=== PATIENT | female | born 1995 | race American Indian/Alaskan Native ===

== ENCOUNTER 2021-11-08 02:58 | Emergency (ER) | payer SELFPAY ==
[2021-11-08 03:23] VITALS: BP 106/49
--- NOTE | 2021-11-08 04:28 | Emergency Department Report ---
<DANIEL LOZOYA - Last Filed: 11/08/21 04:24> ED ENT HPI - General Chief complaint: Dental/Oral Stated complaint: TOOTHACHE Time Seen by Provider: 11/08/21 04:08 Source: patient Mode of arrival: Ambulatory Limitations: No Limitations - History of Present Illness Initial comments: 20 [place] female with history of recurrent dental infection due to dental fractures presents emerged from complaining of a flareup on the right side with a dull throbbing pain worse with chewing and palpation that radiates up towards her ear and across the jawline. She reports no hemoptysis symptoms hematochezia, no odynophagia or dysphagia no posterior oropharynx swelling swelling 1 - Dental caries pain region 2 - Severe dental erosion packed with tissue. Severity: moderate Quality: dull - Related Data Previous Rx's Medication Instructions Recorded Last Taken Type Amoxicillin [Amoxicillin TAB] 875 mg PO BID #20 tablet 11/08/21 Unknown Rx Chlorhexidine Mouthwash [Peridex] 15 ml MM BID #1 bottle 11/08/21 Unknown Rx Ketorolac [Toradol] 10 mg PO Q6H PRN #15 tablet 11/08/21 Unknown Rx Lidocaine Viscous 2% 5 ml MM Q3H PRN #120 udc 11/08/21 Unknown Rx ED Dental HPI - General Chief complaint: Dental/Oral Stated complaint: TOOTHACHE Time Seen by Provider: 11/08/21 04:08 Source: patient Mode of arrival: Ambulatory Limitations: No Limitations - Related Data Previous Rx's Medication Instructions Recorded Last Taken Type Amoxicillin [Amoxicillin TAB] 875 mg PO BID #20 tablet 11/08/21 Unknown Rx Chlorhexidine Mouthwash [Peridex] 15 ml MM BID #1 bottle 11/08/21 Unknown Rx Ketorolac [Toradol] 10 mg PO Q6H PRN #15 tablet 11/08/21 Unknown Rx Lidocaine Viscous 2% 5 ml MM Q3H PRN #120 udc 11/08/21 Unknown Rx ED Past Medical Hx - Past Medical History Previous Medical History?: No - Surgical History Past Surgical History?: No - Social History Smoking Status: Never Smoker - Medications Home Medications: Home Medications Medication Instructions Recorded Confirmed Last Taken Type Amoxicillin [Amoxicillin TAB] 875 mg PO BID #20 tablet 11/08/21 Unknown Rx Chlorhexidine Mouthwash [Peridex] 15 ml MM BID #1 bottle 11/08/21 Unknown Rx Ketorolac [Toradol] 10 mg PO Q6H PRN #15 tablet 11/08/21 Unknown Rx Lidocaine Viscous 2% 5 ml MM Q3H PRN #120 udc 11/08/21 Unknown Rx ED Physical Exam - General Limitations: No Limitations General appearance: alert, in no apparent distress - Head Head exam: Present: atraumatic, normocephalic - Eye Eye exam: Present: normal appearance - ENT ENT exam: Present: mucous membranes moist - Expanded ENT Exam Expanded Teeth exam: Present: dental caries, fractured tooth # 1 - Fractured (Dental fracture erosion packed with brown tissue paper), Dental Tenderness 2 - Dental Tenderness - Neck Neck exam: Present: normal inspection - Respiratory Respiratory exam: Present: normal lung sounds bilaterally. Absent: respiratory distress - Cardiovascular Cardiovascular Exam: Present: regular rate, normal rhythm. Absent: systolic murmur, diastolic murmur, rubs, gallop - GI/Abdominal GI/Abdominal exam: Present: soft, normal bowel sounds - Extremities Exam Extremities exam: Present: normal inspection - Back Exam Back exam: Present: normal inspection - Neurological Exam Neurological exam: Present: alert, oriented X3 - Psychiatric Psychiatric exam: Present: normal affect, normal mood - Skin Skin exam: Present: warm, dry, intact, normal color. Absent: rash ED Disposition Clinical Impression: Infected dental caries, Dentalgia Disposition: HOME / SELF CARE / HOMELESS Is pt being admited?: No Does the pt Need Aspirin: No Condition: Stable Instructions: Dental Abscess, Acute Pain, Adult Prescriptions: Amoxicillin [Amoxicillin TAB] 875 mg PO BID #20 tablet Lidocaine Viscous 2% 5 ml MM Q3H PRN #120 udc PRN Reason: Pain, Moderate (4-6) Chlorhexidine Mouthwash [Peridex] 15 ml MM BID #1 bottle Ketorolac [Toradol] 10 mg PO Q6H PRN #15 tablet PRN Reason: Pain Referrals: [facility] [Outside] - 3-5 Days Forms: Accompanied Note, Work/School Release Form(ED) <SELMA ALBRIGHT - Last Filed: 11/11/21 21:34> ED Review of Systems ROS: Stated complaint: TOOTHACHE Other details as noted in HPI ED Course Vital Signs 11/08/21 03:17 Temperature 98.5 F Pulse Rate 84 Respiratory 16 Rate Blood Pressure 106/49 Blood Pressure 106/49 [Right] O2 Sat by Pulse 100 Oximetry Critical care attestation.: If time is entered above; I have spent that time in minutes in the direct care of this critically ill patient, excluding procedure time.
== END 2021-11-08 06:13 | disposition home or self-care (01) ==
LOC: ED 02:58
DX: K02.9 Dental caries, unspecified (principal); K03.2 Erosion of teeth
CPT/HCPCS: 99282